=== PATIENT | male | born 1965 | race Caucasian/White ===

== ENCOUNTER 2017-02-27 11:52 | Emergency (ER) | payer MEDICAID, OTHER ==
[~2017-02-27] VITALS: Ht 175.3 cm; Wt 105.9 kg
[2017-02-27 11:52] VITALS: BP 149/92
== END 2017-02-27 12:34 | disposition home or self-care (01) ==
LOC: ED 12:11
DX: J30.2 Other seasonal allergic rhinitis (principal); F17.210 Nicotine dependence, cigarettes, uncomplicated
CPT/HCPCS: 71020; 99284

== ENCOUNTER 2017-10-17 00:19 | Emergency (ER) | payer BC, OTHER ==
[~2017-10-17] VITALS: Ht 175.3 cm; Wt 99.0 kg
[2017-10-17 00:21] VITALS: BP 135/93
[2017-10-17] MEDS ORDERED: METHOCARBAMOL 750 MG TABLET ONE (00:48)
[2017-10-17] MEDS ORDERED: KETOROLAC 30 MG/1 ML ONE (00:49)
[2017-10-17] MEDS ORDERED: KETOROLAC 30 MG/1 ML IM ONE (01:00)
[2017-10-17] MEDS ORDERED: METHOCARBAMOL 750 MG TABLET PO ONE (01:00)
== END 2017-10-17 01:33 | disposition home or self-care (01) ==
LOC: ED 00:38
DX: S39.012A Strain of muscle, fascia and tendon of lower back, initial encounter (principal); X50.1XXA Overexertion from prolonged static or awkward postures, initial encounter; Y93.89 Activity, other specified; Y99.8 Other external cause status; Y92.89 Other specified places as the place of occurrence of the external cause
CPT/HCPCS: 96372; 99283; J1885

== ENCOUNTER 2017-10-31 00:32 | Emergency (ER) | payer OTHER ==
[~2017-10-31] VITALS: Ht 175.3 cm; Wt 101.0 kg
[2017-10-31 00:38] VITALS: BP 148/87
== END 2017-10-31 02:47 | disposition home or self-care (01) ==
LOC: ED 01:38
DX: G89.11 Acute pain due to trauma (principal); M25.511 Pain in right shoulder; X58.XXXA Exposure to other specified factors, initial encounter; Y93.89 Activity, other specified; Y99.8 Other external cause status; Y92.69 Other specified industrial and construction area as the place of occurrence of the external cause
CPT/HCPCS: 99284

== ENCOUNTER 2017-12-20 03:00 | Emergency (ER) | payer OTHER ==
[~2017-12-20] VITALS: Ht 175.3 cm; Wt 102.9 kg
[2017-12-20 03:22] VITALS: BP 164/99
[2017-12-20] MEDS ORDERED: IBUPROFEN 200 MG TABLET ONE (03:27)
[2017-12-20] MEDS ORDERED: IBUPROFEN 200 MG TABLET PO ONE (03:30)
== END 2017-12-20 04:06 | disposition home or self-care (01) ==
LOC: ED 03:41
DX: M75.101 Unspecified rotator cuff tear or rupture of right shoulder, not specified as traumatic (principal)
CPT/HCPCS: 99282

== ENCOUNTER 2020-10-13 10:00 | Emergency (ER) | payer BC, OTHER ==
[~2020-10-13] VITALS: Ht 175.3 cm; Wt 100.1 kg
--- NOTE | 2020-10-13 10:19 | NUR ---
PT HAS CO N/T IN HANDS, LEFT LEG WEAKNESS W LEFT FOOT DROP. PT STATES HIS GAIT IN OFF WE HIS FOOT WEAKNESS. DENIES CP, NO N/V. HX OF CARPAL TUNNEL. PT HAS NORMAL GAIT, NOT ATAXIC. NEURO EXAM INTACT.
[2020-10-13 10:55] LABS: BASOPHILS % (AUTO) 1 % (0-1); EOSINOPHILS % (AUTO) 3 % (1-7); LYMPHOCYTES % (AUTO) 30 % (22-44); MEAN CORPUSCULAR HEMOGLOBIN 30.5 pg (27.5-34.5); MEAN CORPUSCULAR HGB CONC 34.7 g/dL (33.2-36.2); MEAN PLATELET VOLUME 8.1 fL (7.4-10.4); MONOCYTES % (AUTO) 8 % (2-9); NEUTROPHILS % (AUTO) 57 % (42-75); PLATELET COUNT 313 x10^3/uL (130-400); RED BLOOD COUNT 4.75 x10^6/uL (4.38-5.82); RED CELL DISTRIBUTION WIDTH 12.9 % (9.4-14.8)
[2020-10-13 10:57] LABS: MD NO
[2020-10-13 11:01] LABS: ALANINE AMINOTRANSFERASE 46 U/L (12-78); ALBUMIN 3.8 g/dL (3.4-5.0); ANION GAP 5 mmol/L (5-15); CALCIUM 9.2 mg/dL (8.5-10.1); CHLORIDE 107 mmol/L (98-107); CREATININE 0.91 mg/dL (0.7-1.3)
[2020-10-13 11:03] LABS: ALKALINE PHOSPHATASE 76 U/L (45-117); BILIRUBIN,TOTAL 0.3 mg/dL (0.2-1.0); TOTAL PROTEIN 7.4 g/dL (6.4-8.2)
--- NOTE | 2020-10-13 11:30 | NUR ---
PT RESTING, VSS. AWAITING IMAGES AND LABS
--- NOTE | 2020-10-13 12:30 | NUR ---
WAITING FOR MRI
--- NOTE | 2020-10-13 13:19 | NUR ---
PT IN MRI
--- NOTE | 2020-10-13 14:00 | NUR ---
PT BACK FROM MRI. PLAN TO DC
--- NOTE | 2020-10-13 14:20 | NUR ---
Patient/Caregiver given discharge instructions and they have confirmed that they understand the instructions. Patient ambulatory with steady gait.
[2020-10-13 14:21] VITALS: BP 149/72
== END 2020-10-13 14:33 | disposition home or self-care (01) ==
LOC: ED 10:47
DX: R53.1 Weakness (principal); R20.0 Anesthesia of skin; R51.9 Headache, unspecified; R06.9 Unspecified abnormalities of breathing
CPT/HCPCS: 36415; 70450; 70551; 71045; 80053; 85025; 93005; 99285